=== PATIENT | female | born 1995 | race Two or more races ===

== ENCOUNTER 2024-01-13 21:08 | Emergency (ER) | payer MEDICAID, SELFPAY ==
[2024-01-13 21:09] VITALS: BMI 26.8
[2024-01-13 22:04] VITALS: BP 146/89; PULSE 85; RESP 18; TEMP 36.9; O2SAT 98
--- NOTE | 2024-01-13 22:11 | XR_ITS ---
Examination: OB Transvaginal ultrasound of the pelvis, complete Technique: Transvaginal sonographic images pelvis performed using saha scale imaging Exam date and time: January 13, 2024 10:20 PM Indications: Painful urination and vaginal bleeding pelvic pain beginning today Findings: Uterus 5.9 x 5.7 x 5.7 cm pole 0.8 cm corresponds to 6 week 6 day gestational age Cardiac motion 129 BPM Subchorionic hemorrhage 6 x 3 x 4 mm Right ovary 3.2 x 2.1 cm arterial flow Left ovary 2.2 x 2.3 cm arterial flow Impression: Viable intrauterine gestation 6 weeks 6 days Small adjacent subchorionic hemorrhage 6 x 3 x 4 mm.
--- NOTE | 2024-01-13 22:12 | EDRME_ITS ---
Rapid Medical Screening Exam [facility] Arrival date/time: 01/13/24 21:08 28F at approximately 6 weeks and with history of seizures presents to ED with several day of dysuria, flank pain, pelvic pain, and vaginal bleeding. Chief Complaint: Urogenital-Female Vital signs: Vital Signs Temperature 98.5 F 01/13/24 22:04 Pulse Rate 85 01/13/24 22:04 Respiratory Rate 18 01/13/24 22:04 Blood Pressure 146/89 H 01/13/24 22:04 Pulse Oximetry (%) 98 01/13/24 22:04 Oxygen Delivery Method Room Air 01/13/24 22:04
[2024-01-13 23:21] LABS: Basophils # (Auto) 0.1 Thou/mm3 (0.0-0.2); Basophils % (Auto) 0 % (0-2.5); Eosinophils # (Auto) 0.2 Thou/mm3 (0.0-0.5); Eosinophils % (Auto) 1 % (0-10); Hematocrit 38.4 % (36.0-46.0); Hemoglobin 13.2 g/dL (12.0-16.0); Immature Granulocytes % (Auto) 0 % (0-0); Immature Granulocytes Auto 0.05 Thou/mm3 (0.00-0.00); Lymphocytes # (Auto) 2.3 Thou/mm3 (1.0-4.8); Lymphocytes % (Auto) 15 % (10-50); Mean Corpuscular HGB Conc 34.4 g/dl (31.0-37.0); Mean Corpuscular Hemoglobin 30.6 pg (25.0-35.0); Mean Corpuscular Volume 89 fL (80-100); Monocytes % (Auto) 6 % (0-12); Neutrophils # (Auto) 12.1 Thou/mm3 (1.8-7.7); Neutrophils % (Auto) 77 % (37-80); Nucleated Red Blood Cell % 0 /100 WBC (0); Platelet Count 323 Thou/mm3 (140-440); RDW Standard Deviation 38.5 fL (36.4-46.3); Red Blood Count 4.32 Miln/mm3 (4.00-5.20); White Blood Count 15.7 Thou/mm3 (3.6-11.0)
[2024-01-13 23:22] LABS: Collection Type, Urine Clean Catch
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
[2024-01-13 23:41] LABS: Bilirubin,Urine Negative (Negative); Blood,Urine 3+ (Negative); Clarity,Urine Turbid (Clear/Hazy); Color,Urine Yellow (Lt Yel-Yel); Glucose, Urine Negative (Negative); Ketones,Urine Negative (Negative); Leukocyte Esterase,Urine Positive (Negative); Nitrite,Urine Negative (Negative); PH,Urine 6.5 (5.0-7.0); Protein,Urine 2+ (Neg - Trace); RBC,Urine 1158 /hpf (0-3); Specific Gravity,Urine 1.026 (1.001-1.035); Squamous Epithelial Cell,Urine 6 /hpf (0-5); Urobilinogen,Urine Negative mg/dL (0.0-1.0); WBC,Urine 159 /hpf (0-5)
[2024-01-13 23:46] LABS: Alanine Aminotransferase 17 U/L (10-49); Albumin, Serum 4.5 gm/dL (3.5-5.0); Albumin/Globulin Ratio 1.7 (1.2-2.2); Alkaline Phosphatase 91 U/L (46-116); Anion Gap 7 (7-16); Aspartate Amino Transferase 15 U/L (0-34); BUN/Creatinine Ratio 14 Ratio (12-20); Bilirubin,Total 0.6 mg/dL (0.3-1.2); Blood Urea Nitrogen 10 mg/dL (9-23); Calcium 9.5 mg/dL (8.3-10.6); Calcium (Corrected) 9.5 mg/dL (8.5-10.1); Carbon Dioxide 25.5 mMol/L (20.0-31.0); Chloride 105 mMol/L (98-107); Creatinine (Component) 0.7 mg/dL (0.6-1.3); Estimated Creatinine Clearance 104.7 mL/min (>60); Globulin 2.7 gm/dL (2.3-3.5); Glucose 93 mg/dL (74-106); Osmolality,Calculated 272 (275-295); Potassium 3.9 mMol/L (3.4-5.1); Sodium 137 mMol/L (136-145); Total Protein 7.2 gm/dL (5.7-8.2); eGFR > 60 See Note
[2024-01-14 00:17] LABS: Beta HCG,Quantitative 72369 mIU/mL (<5.0)
[2024-01-14] MEDS: cefTRIAXone 1,000 MG, LIDOCAINE 1% 20 ML 2.1 ML IM (01:06)
== END 2024-01-14 01:15 | disposition home or self-care (01) ==
PROVIDERS: Physician Assistant; Emergency Provider Emergency Medicine; PCP Physician Assistant Medical
DX: O23.41 Unspecified infection of urinary tract in pregnancy, first trimester (principal); N39.0 Urinary tract infection, site not specified; O20.0 Threatened abortion; Z3A.01 Less than 8 weeks gestation of pregnancy
CPT/HCPCS: 36415; 76817; 80053; 81001; 84702; 85025; 86900; 86901; 87086; 96372; 99284; J0696; J3490

== ENCOUNTER 2024-01-18 18:45 | Emergency (ER) | payer MEDICAID, SELFPAY ==
[2024-01-18 18:46] VITALS: BP 126/78; PULSE 79; RESP 19; TEMP 37.1; O2SAT 97
[2024-01-18 18:48] VITALS: PULSE 98; RESP 16; O2SAT 99; BMI 24.7
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
--- NOTE | 2024-01-18 19:21 | EDNOTE_ITS ---
<Statement entered by Maura Dyson MD - 01/26/24 17:45> As co-signing physician, I was present and available for consult prn. I concur with the plan and care as documented by the midlevel provider. ED Seizures RME/HPI General Chief Complaint: Seizure Stated Complaint: SEIZURE Time Seen by Provider: 01/18/24 19:20 Arrival date/time: 01/18/24 18:45 This is a 28-year-old female that comes into the emergency room with complaints of seizures prior to arrival. Patient has a history of epilepsy. Patient is approximately 7 weeks . Patient was in line at [facility] [employer] to pay and had 2 seizures [id number]. Patient was assisted to the floor and did not fall according to mom. Patient denies any injuries. Patient states over the past couple weeks has had nausea vomiting. Patient was recently diagnosed with a UTI and is on antibiotics. Related Data Previous Rx's ?Medication ?Instructions ?Recorded levetiracetam 500 mg tablet 500 mg PO BID #60 tabs 11/26/22 (Keppra) azithromycin 500 mg tablet See Rx Instructions PO .COMPLEX #6 02/09/23 tabs ibuprofen 600 mg tablet 600 mg PO Q6H #30 tabs 02/09/23 ondansetron 4 mg disintegrating 4 mg PO Q8H PRN nausea and 02/09/23 tablet vomiting #10 tabs ibuprofen 600 mg tablet 600 mg PO Q6H #30 tabs 11/26/23 phenazopyridine 100 mg tablet 100 mg PO TID PRN pain 6 doses #6 01/14/24 (Pyridium) tabs ondansetron 4 mg disintegrating 4 mg PO Q6H PRN nausea and 01/18/24 tablet vomiting #10 tabs Allergies Allergy/AdvReac Type Severity Reaction Status Date / Time No Known Allergies Allergy Verified 11/26/23 08:19 Review of Systems Review of Systems Systems Reviewed: All systems reviewed, normal except as documented Past Medical History Past Medical History NEUROLOGIC: Negative Neurological Disorders CARDIAC: Negative Cardiac Disorders or Congestive Heart Failure RESPIRATORY: Negative Chronic Obstructive Pulmonary Disease (COPD) GENITOURINARY: Negative Renal Disease ENDOCRINE: Negative Diabetes Mellitus Type 1 or Diabetes Mellitus Type 2 Social History SMOKING STATUS: Never smoker ED Exam General General appearance: Present alert and in no apparent distress Head Head exam: Present atraumatic Eye Eye exam: Present normal appearance, PERRL and EOMI ENT ENT exam: Present normal exam, normal oropharynx and mucous membranes moist Neck Neck exam: Present normal inspection, full ROM and trachea midline Chest Chest inspection: Present normal inspection and symmetric chest wall rise Respiratory Respiratory exam: Present normal lung sounds bilaterally Cardiovascular Cardiovascular exam: Present regular rate, normal rhythm and normal heart sounds Abdominal Exam Abdominal exam: Present soft and other (nontender to palpation ) Extremities Exam Extremities exam: Present normal inspection and full ROM Back Exam Back exam: Present normal inspection and full ROM Neurological Exam Neurological exam: Present alert, oriented X3 and CN II-XII intact Psychiatric Psychiatric exam: Present normal affect and normal mood Skin Skin exam: Present warm, dry, intact and normal color Course Quality Measures none Orders Category Date Time Status IV [Insert IV] STAT Care 01/18/24 19:35 Completed CBC Stat Lab 01/18/24 19:41 Completed Comprehensive Metabolic Panel Stat Lab 01/18/24 19:41 Completed Drug Screen,Urine Stat Lab 01/18/24 19:52 Completed Lipase Stat Lab 01/18/24 19:41 Completed Urinalysis, C/S if Indicated Stat Lab 01/18/24 19:52 Completed Ondansetron Inj [Zofran Inj] Med 01/18/24 19:37 Discontinued 4 mg IV X1 ONE Sodium Chloride 0.9% 1000 ml [Ns] 1,000 ml Med 01/18/24 19:35 Discontinued IV 999 mls/hr levETIRAcetam INJ [Keppra Inj] Med 01/18/24 19:31 Discontinued 1,000 mg IVP X1 ONE Vital Signs Vital signs: Vital Signs Temperature 98.7 F 01/18/24 18:46 Pulse Rate 79 01/18/24 18:46 Respiratory Rate 19 01/18/24 18:46 Blood Pressure 126/78 01/18/24 18:46 Pulse Oximetry (%) 97 01/18/24 18:46 Oxygen Delivery Method Room Air 01/18/24 18:46 Seizure MDM Narrative MDM Narrative:: This is a 28-year-old female that comes into the emergency room with complaints of seizures prior to arrival. Patient has a history of epilepsy. Patient is approximately 7 weeks . Patient was in line at [facility] waiting to pay and had 2 seizures [id number]. Patient was assisted to the floor and did not fall according to mom. Patient denies any injuries. Patient states over the past couple weeks has had nausea vomiting. Patient was recently diagnosed with a UTI and is on antibiotics. Labs reviewed and significant for wbc of 12.8, urine showed infection but better than previous. Pt still on antibiotics. Pt given 1 liter iv fluids, keprra, and zofran. Pt told she will need to follow up with neurologist. Pt verbalizes understanding. She also verbalizes she will take sz meds. Patient data External records reviewed:: [facility] [place] previous records Clinical information provided by:: patient Social determinants that could affect healthcare access:: none Patient has the following chronic illnesses:: sz disorder How is presenting disease/condition affected by chronic disease/condition?: exacerbated by Evaluation data The following diagnostics were reviewed and interpreted by me:: lab results Lab and/or radiology exams considered but not ordered:: none Interpretation Summary: see note Medications / Prescriptions Medications or Prescriptions considered but not ordered:: none Medication administrations:: Medication Administration History Discontinued Medications Sodium Chloride (Ns) 1,000 mls @ 999 mls/hr IV .Q1H1M ONE Stop: 01/18/24 20:35 Last Infusion: 01/18/24 21:33 Dose: Infused Documented By: Admin: 01/18/24 19:44 Dose: 999 mls/hr Documented By: STEPHANIE Levetiracetam (Levetiracetam Inj 100 Mg/Ml Vial 5ml) 1,000 mg IVP X1 ONE Stop: 01/18/24 19:32 Last Admin: 01/18/24 19:44 Dose: 1,000 mg Documented By: STEPHANIE Ondansetron HCl (Ondansetron Inj 2 Mg/Ml Inj 2 Ml) 4 mg IV X1 ONE; Protocol Stop: 01/18/24 19:38 Last Admin: 01/18/24 19:44 Dose: 4 mg Documented By: STEPHANIE see mar Consultations Consultation(s) initiated? (list below): No Diagnosis Seizure Differential Diagnosis: intractable seizure disorder, epileptic seizure and other (uti, sepsis) Most likely diagnosis given after review of the tests above:: not taking medication for epilepsy Admission Indicated Admission indicated?: not indicated Admission Request Was there a request for admission?: No Disposition Plan Disposition Plan: Discharge Discharge Attestation Discharge Attestation: The patient and all family members were given an opportunity to ask questions and understood the discharge instructions. Discharge instructions specifically effects, indications for sooner follow up or return to the emergency department, and the expected course of current diagnosis. Patient condition: Stable Discharge Plan Plan Patient Disposition: HOME (Self Care) Patient condition on transfer: Stable Prescriptions/Referrals Prescriptions/Med Rec: New ondansetron 4 mg tablet,disintegrating 4 mg PO Q6H PRN (Reason: nausea and vomiting) Qty: 10 0RF No Action ibuprofen 600 mg tablet 600 mg PO Q6H Qty: 30 0RF levetiracetam [Keppra] 500 mg tablet 500 mg PO BID Qty: 60 0RF ibuprofen 600 mg tablet 600 mg PO Q6H Qty: 30 0RF ondansetron 4 mg tablet,disintegrating 4 mg PO Q8H PRN (Reason: nausea and vomiting) Qty: 10 0RF azithromycin 500 mg tablet See Rx Instructions .ROUTE .COMPLEX Qty: 6 0RF Rx Instructions: take 500 mg today (day 1), then 250 mg for 4 days (days 2-5) phenazopyridine [Pyridium] 100 mg tablet 100 mg PO TID PRN (Reason: pain) Qty: 6 0RF Referrals: No Primary/Family,Physician [Referring Provider] - In 1 week Problem List Clinical Impression: Seizure disorder, UTI (urinary tract infection) Patient/Caregiver Discharge Instructions Discharge Activity: activity as tolerated Education Materials: Urinary Tract Infections in Women, ED Seizure, Recurrent (Adult) Additional Instructions: Continue to take antibiotics as prescribed. Please take seizure medications as directed. Please make an appointment with primary provider and have them refer you to a neurologist in town. Print Language: Romansh Stand Alone Forms: Gill Award Info., Patient Portal Info Letter MARVA/BRO Supervising Physician MARVA/BRO Supervising Physician: prasad
[2024-01-18] MEDS: ONDANSETRON INJ 2 MG/ML INJ 2 ML 4 MG IV (19:44)
[2024-01-18] MEDS: levETIRAcetam INJ 100 MG/ML VIAL 5ML 1000 MG IVP (19:44)
[2024-01-18] MEDS: SODIUM CHLORIDE 0.9% 1000 ML 1,000 ML 999 ML IV (19:44)
[2024-01-18 19:49] VITALS: BP 119/77; PULSE 81; RESP 20; TEMP 37.2; O2SAT 99
[2024-01-18 19:54] LABS: Basophils % (Auto) 0 % (0-2.5); Eosinophils # (Auto) 0.1 Thou/mm3 (0.0-0.5); Eosinophils % (Auto) 0 % (0-10); Hematocrit 38.4 % (36.0-46.0); Hemoglobin 13.5 g/dL (12.0-16.0); Immature Granulocytes % (Auto) 0 % (0-0); Immature Granulocytes Auto 0.03 Thou/mm3 (0.00-0.00); Lymphocytes # (Auto) 1.5 Thou/mm3 (1.0-4.8); Lymphocytes % (Auto) 12 % (10-50); Mean Corpuscular HGB Conc 35.2 g/dl (31.0-37.0); Mean Corpuscular Hemoglobin 30.6 pg (25.0-35.0); Mean Corpuscular Volume 87 fL (80-100); Monocytes # (Auto) 0.7 Thou/mm3 (0.0-0.8); Monocytes % (Auto) 5 % (0-12); Neutrophils # (Auto) 10.5 Thou/mm3 (1.8-7.7); Neutrophils % (Auto) 82 % (37-80); Nucleated Red Blood Cell % 0 /100 WBC (0); Platelet Count 319 Thou/mm3 (140-440); RDW Standard Deviation 37.9 fL (36.4-46.3); Red Blood Count 4.41 Miln/mm3 (4.00-5.20); White Blood Count 12.8 Thou/mm3 (3.6-11.0)
[2024-01-18 20:01] LABS: Collection Type, Urine Voided
[2024-01-18 20:09] LABS: Bacteria,Urine Rare; Bilirubin,Urine Negative (Negative); Blood,Urine Negative (Negative); Clarity,Urine Turbid (Clear/Hazy); Color,Urine Yellow (Lt Yel-Yel); Culture Indicated,Urine Contaminated; Glucose, Urine Negative (Negative); Ketones,Urine 2+ (Negative); Leukocyte Esterase,Urine Positive (Negative); Nitrite,Urine Negative (Negative); PH,Urine 6.5 (5.0-7.0); Protein,Urine 1+ (Neg - Trace); RBC,Urine 6 /hpf (0-3); Specific Gravity,Urine 1.029 (1.001-1.035); Squamous Epithelial Cell,Urine 23 /hpf (0-5); Urobilinogen,Urine Negative mg/dL (0.0-1.0); WBC,Urine 20 /hpf (0-5)
[2024-01-18 20:13] LABS: Alanine Aminotransferase 19 U/L (10-49); Albumin, Serum 4.6 gm/dL (3.5-5.0); Albumin/Globulin Ratio 1.5 (1.2-2.2); Alkaline Phosphatase 92 U/L (46-116); Anion Gap 9 (7-16); Aspartate Amino Transferase 16 U/L (0-34); BUN/Creatinine Ratio 10 Ratio (12-20); Blood Urea Nitrogen 6 mg/dL (9-23); Calcium 9.9 mg/dL (8.3-10.6); Calcium (Corrected) 9.9 mg/dL (8.5-10.1); Carbon Dioxide 24.5 mMol/L (20.0-31.0); Chloride 104 mMol/L (98-107); Creatinine (Component) 0.6 mg/dL (0.6-1.3); Estimated Creatinine Clearance 127.5 mL/min (>60); Glucose 91 mg/dL (74-106); Lipase 33 U/L (12-53); Osmolality,Calculated 271 (275-295); Sodium 137 mMol/L (136-145); Total Protein 7.6 gm/dL (5.7-8.2); eGFR > 60 See Note
[2024-01-18 20:19] LABS: Amphetamine/Methamp Scrn,U Negative (Negative); Barbiturate Screen,Urine Negative (Negative); Benzodiazepines Screen,Urine Negative (Negative); Benzoylecgonine Screen, Ur Negative (Negative); Fentanyl Screen,Urine Negative (Negative); Opiate Screen,Urine Negative (Negative); THC Screen,Urine Negative (Negative)
[2024-01-18 21:17] VITALS: BP 116/80; PULSE 76; RESP 16; TEMP 36.9; O2SAT 100
== END 2024-01-18 21:46 | disposition home or self-care (01) ==
PROVIDERS: Nurse Practitioner Family; Emergency Provider Emergency Medicine; PCP Physician Assistant Medical
DX: O99.351 Diseases of the nervous system complicating pregnancy, first trimester (principal); G40.909 Epilepsy, unspecified, not intractable, without status epilepticus; O23.41 Unspecified infection of urinary tract in pregnancy, first trimester; N39.0 Urinary tract infection, site not specified; Z3A.01 Less than 8 weeks gestation of pregnancy
CPT/HCPCS: 36415; 80053; 80307; 81001; 83690; 85025; 96361; 96374; 96375; 99284; J1953; J2405; J7030

== ENCOUNTER 2024-02-22 11:00 | Emergency (ER) | payer MEDICAID, SELFPAY ==
[2024-02-22 11:26] VITALS: BP 106/68; PULSE 115; RESP 18; TEMP 39; O2SAT 97; BMI 25.3
[2024-02-22 11:53] VITALS: TEMP 39
[2024-02-22] MEDS: ACETAMINOPHEN 500 MG TABLET 1000 MG PO (11:53)
[2024-02-22] MEDS: ONDANSETRON ODT 4 MG TABRAP PO (11:54)
[2024-02-22] MEDS: KETOROLAC INJ 60 MG/2 ML VIAL IM (11:55)
[2024-02-22 13:27] VITALS: BP 100/69; PULSE 96; RESP 18; TEMP 36.7; O2SAT 94
--- NOTE | 2024-02-22 14:36 | EDNOTE_ITS ---
Upper Respiratory Inf. RME/HPI General Chief Complaint: Flu Like Symptoms Stated Complaint: flu like symptoms x 1 day Time Seen by Provider: 02/22/24 11:36 Arrival date/time: 02/22/24 11:00 RME / HPI RME / HPI Narrative: 28-year-old female presents emergency department with complaint of flulike symptoms for the past 1 day. Patient was seen here yesterday with daughter who was also positive for strep and influenza. Patient also complains of fatigue and bodyaches. She denies any elevating aggravating factors. MD Complaint: fever, cough and sore throat Duration: constant Severity: severe Severity scale (1-10): 8 Relieving factors: nothing Exacerbating factors: nothing Description of mucous: clear Able to tolerate fluids by mouth: Yes Related Data Previous Rx's ?Medication ?Instructions ?Recorded levetiracetam 500 mg tablet 500 mg PO BID #60 tabs 11/26/22 (Keppra) azithromycin 500 mg tablet See Rx Instructions PO .COMPLEX #6 02/09/23 tabs ibuprofen 600 mg tablet 600 mg PO Q6H #30 tabs 02/09/23 ondansetron 4 mg disintegrating 4 mg PO Q8H PRN nausea and 02/09/23 tablet vomiting #10 tabs ibuprofen 600 mg tablet 600 mg PO Q6H #30 tabs 11/26/23 phenazopyridine 100 mg tablet 100 mg PO TID PRN pain 6 doses #6 01/14/24 (Pyridium) tabs ondansetron 4 mg disintegrating 4 mg PO Q6H PRN nausea and 01/18/24 tablet vomiting #10 tabs azithromycin 250 mg tablet See Rx Instructions PO .COMPLEX #6 02/22/24 tabs ibuprofen 600 mg tablet 600 mg PO QID PRN pain #20 tabs 02/22/24 ondansetron 4 mg disintegrating 4 mg PO Q8H #10 tabs 02/22/24 tablet oseltamivir 75 mg capsule (Tamiflu) 75 mg PO BID 5 days #10 caps 02/22/24 Allergies Allergy/AdvReac Type Severity Reaction Status Date / Time No Known Allergies Allergy Verified 11/26/23 08:19 Review of Systems Review of Systems Systems Reviewed: All systems reviewed, normal except as documented Constitutional Constitutional: Reports system reviewed and no additional complaints, except as documented ENT Ears, Nose, Mouth, and Throat: Reports system reviewed and no additional complaints, except as documented Respiratory Respiratory: Reports system reviewed and no additional complaints, except as documented Musculoskeletal Musculoskeletal: Reports system reviewed and no additional complaints, except as documented ED Exam General General appearance: Present alert and in no apparent distress; Absent appears intoxicated or anxious Head Head exam: Present atraumatic and normocephalic Eye Eye exam: Present normal appearance and PERRL ENT ENT exam: Present normal exam and normal oropharynx Chest Chest inspection: Present normal inspection and symmetric chest wall rise Respiratory Respiratory exam: Present normal lung sounds bilaterally Cardiovascular Cardiovascular exam: Present regular rate and normal rhythm Extremities Exam Extremities exam: Present normal inspection and full ROM Back Exam Back exam: Present normal inspection and full ROM Psychiatric Psychiatric exam: Present normal affect and normal mood Course Quality Measures none Orders Category Date Time Status Acetaminophen Tab [Tylenol ES Tab] Med 02/22/24 11:37 Discontinued 1,000 mg PO X1 ONE Ketorolac Inj [Toradol Inj] Med 02/22/24 11:37 Discontinued 60 mg IM X1 ONE Ondansetron Odt [Zofran Odt] Med 02/22/24 11:37 Discontinued 4 mg PO X1 ONE Vital Signs Vital signs: Vital Signs Temperature 102.2 F H 02/22/24 11:26 Pulse Rate 115 H 02/22/24 11:26 Respiratory Rate 18 02/22/24 11:26 Blood Pressure 106/68 02/22/24 11:26 Pulse Oximetry (%) 97 02/22/24 11:26 Oxygen Delivery Method Room Air 02/22/24 11:26 Upper Respiratory Infection MDM Narrative MDM Narrative:: Patient's daughter tested positive for influenza and strep. Will treat patient empirically for strep and influenza. Patient is in agreement with plan. Patient data External records reviewed:: None Clinical information provided by:: patient Social determinants that could affect healthcare access:: none Patient has the following chronic illnesses:: NA How is presenting disease/condition affected by chronic disease/condition?: no chronic disease Evaluation data The following diagnostics were reviewed and interpreted by me:: other (specify) (N/A) Lab and/or radiology exams considered but not ordered:: NA Interpretation Summary: NA Medications / Prescriptions Medications or Prescriptions considered but not ordered:: CONSIDERED AND ORDERED Medication administrations:: Medication Administration History Discontinued Medications Acetaminophen (Acetaminophen 500 Mg Tablet) 1,000 mg PO X1 ONE Stop: 02/22/24 11:38 Last Admin: 02/22/24 11:53 Dose: 1,000 mg Documented By: ED Ketorolac Tromethamine (Ketorolac Inj 60 Mg/2 Ml Vial) 60 mg IM X1 ONE Stop: 02/22/24 11:38 Last Admin: 02/22/24 11:55 Dose: 60 mg Documented By: ED Ondansetron HCl (Ondansetron Odt 4 Mg Tabrap) 4 mg PO X1 ONE; Protocol Stop: 02/22/24 11:38 Last Admin: 02/22/24 11:54 Dose: 4 mg Documented By: ED PER ABOVE Consultations Consultation(s) initiated? (list below): No Diagnosis Upper Respiratory Differential Diagnosis: upper respiratory infection, viral infection, bronchitis and influenza Most likely diagnosis given after review of the tests above:: INFLUENZA/ STREP PHARYNGITIS Admission Indicated Admission indicated?: not indicated Admission Request Was there a request for admission?: No Disposition Plan Disposition Plan: Discharge Discharge Attestation Discharge Attestation: The patient and all family members were given an opportunity to ask questions and understood the discharge instructions. Discharge instructions specifically effects, indications for sooner follow up or return to the emergency department, and the expected course of current diagnosis. Patient condition: Stable Discharge Plan Plan Patient Disposition: HOME (Self Care) Prescriptions/Referrals Prescriptions/Med Rec: New azithromycin 250 mg tablet See Rx Instructions .ROUTE .COMPLEX Qty: 6 0RF Rx Instructions: For 250 mg dose pack: take 500 mg today (day 1), then 250 mg for 4 days (days 2-5) oseltamivir [Tamiflu] 75 mg capsule 75 mg PO BID 5 Days Qty: 10 0RF ibuprofen 600 mg tablet 600 mg PO QID PRN (Reason: pain) Qty: 20 0RF ondansetron 4 mg tablet,disintegrating 4 mg PO Q8H Qty: 10 0RF No Action ibuprofen 600 mg tablet 600 mg PO Q6H Qty: 30 0RF ondansetron 4 mg tablet,disintegrating 4 mg PO Q6H PRN (Reason: nausea and vomiting) Qty: 10 0RF levetiracetam [Keppra] 500 mg tablet 500 mg PO BID Qty: 60 0RF ibuprofen 600 mg tablet 600 mg PO Q6H Qty: 30 0RF ondansetron 4 mg tablet,disintegrating 4 mg PO Q8H PRN (Reason: nausea and vomiting) Qty: 10 0RF azithromycin 500 mg tablet See Rx Instructions .ROUTE .COMPLEX Qty: 6 0RF Rx Instructions: take 500 mg today (day 1), then 250 mg for 4 days (days 2-5) phenazopyridine [Pyridium] 100 mg tablet 100 mg PO TID PRN (Reason: pain) Qty: 6 0RF Referrals: Sp Mcneal PA-C [Primary Care Provider] - In 1 week Problem List Clinical Impression: Exposure to influenza, Pharyngitis Patient/Caregiver Discharge Instructions Print Language: Amharic Stand Alone Forms: Gill Award Info., Patient Portal Info Letter
== END 2024-02-22 15:30 | disposition home or self-care (01) ==
PROVIDERS: Emergency Provider Emergency Medicine; PCP Physician Assistant Medical
DX: J02.9 Acute pharyngitis, unspecified (principal); Z20.828 Contact with and (suspected) exposure to other viral communicable diseases
CPT/HCPCS: 96372; 99283; J1885; Q0162; A9270

== ENCOUNTER 2024-10-26 12:11 | Emergency (ER) | payer MEDICAID, SELFPAY ==
--- NOTE | 2024-10-26 12:24 | XR_ITS ---
Examination: CT abdomen and pelvis without contrast. Coronal 3-D reconstructions. Sagittal 2-D reconstructions. Date and time of exam:October 26, 2024 1400 hours INDICATIONS: Left-sided flank pain and nausea beginning 2 days ago CTDI: vol (mGy): 7.11 DLP: (mGycm): 374 Technique: Axial images of the abdomen have been obtained, 3 mm slice thickness Intravenous contrast material has not been administered. Low dose protocols were performed. One or more of the following dose reduction techniques were used; automated exposure control, adjustment of the mA and/or KV according to patient size, use of iterative reconstruction technique. Findings: No focal liver or splenic lesions No gallstones No pancreatic or adrenal mass No renal or ureteral calculi, no hydronephrosis Aorta normal size No bowel obstruction Normal appendix No diverticulitis Suspicious for 20 mm right adnexal cyst Contracted urinary bladder Adequate bone density IMPRESSION: No renal or ureteral calculi, no hydronephrosis No bladder mass or bladder calculi Normal appendix Consider pelvic sonography to confirm 20 mm right adnexal cyst
--- NOTE | 2024-10-26 12:25 | EDNOTE_ITS ---
ED Back Injury Pain RME/HPI General Chief Complaint: Back Pain/Injury Stated Complaint: L) FLANK PAIN X 2 DAYS Time Seen by Provider: 10/26/24 12:19 Source: patient Arrival date/time: 10/26/24 12:11 29-year-old female with no known medical history presents to the emergency room with a chief complaint of left upper quadrant abdominal pain and left-sided flank pain x 2 days Mode of arrival: ambulatory Limitations: no limitations Related Data Previous Rx's ?Medication ?Instructions ?Recorded levetiracetam 500 mg tablet 500 mg PO BID #60 tabs 12/09 (Keppra) azithromycin 500 mg tablet See Rx Instructions PO .COM PLEX #6 02/09/23 tabs ibuprofen 600 mg tablet 600 mg PO Q6H #30 tabs 02/09 ondansetron 4 mg disintegrating 4 mg PO Q8H PRN nausea and 02/09/23 tablet vomiting #10 tabs ibuprofen 600 mg tablet 600 mg PO Q6H #30 tabs 11/25 phenazopyridine 100 mg tablet 100 mg PO TID PRN pain 6 doses #6 01/14/24 (Pyridium) tabs ondansetron 4 mg disintegrating 4 mg PO Q6H PRN nausea and 01/18/24 tablet vomiting #10 tabs azithromycin 250 mg tablet See Rx Instructions PO .COM PLEX #6 02/22/24 tabs ibuprofen 600 mg tablet 600 mg PO QID PRN pain #20 t abs 02/22/24 ondansetron 4 mg disintegrating 4 mg PO Q8H #10 tabs 0 02/22/24 tablet nitrofurantoin 100 mg PO Q12H 5 days #10 ca ps 10/26/24 monohydrate/macrocrystals 100 mg capsule (Macrobid) Allergies Allergy/AdvReac Type Severity Reaction Status Date / Time No Known Allergies Allergy Verified 10/26/24 12:13 Review of Systems Review of Systems Systems Reviewed: All systems reviewed, normal except as documented Constitutional Constitutional: Reports system reviewed and no additional complaints, except as documented, Denies fatigue, Denies fever(s), Denies headache(s) and Denies weakness Eyes Eyes: Reports system reviewed and no additional complaints, except as documented, Denies blurry vision and Denies change in vision ENT Ears, Nose, Mouth, and Throat: Reports system reviewed and no additional complaints, except as documented, Denies otalgia, Denies headache(s), Denies nasal congestion, Denies throat swelling and Denies vertigo Cardiovascular Cardiovascular: Reports system reviewed and no additional complaints, except as documented, Denies chest pain, Denies dyspnea and Denies dyspnea on exertion Respiratory Respiratory: Reports system reviewed and no additional complaints, except as documented, Denies chest congestion, Denies cough, Denies dyspnea, Denies dyspnea on exertion and Denies wheezing Gastrointestinal Gastrointestinal: Reports system reviewed and no additional complaints, except as documented, Reports abdominal pain, Reports cramping, Denies nausea and Denies vomiting Genitourinary Genitourinary: Reports system reviewed and no additional complaints, except as documented Musculoskeletal Musculoskeletal: Reports system reviewed and no additional complaints, except as documented and Denies back pain Integumentary/Breasts Skin/Breast: Reports system reviewed and no additional complaints, except as documented and Denies wounds Neurologic Neurologic: Reports system reviewed and no additional complaints, except as documented, Denies confusion, Denies headache(s), Denies lack of coordination, Denies vertigo and Denies weakness Psychiatric Psychiatric: Reports system reviewed and no additional complaints, except as documented, Denies anxiety, Denies confusion, Denies depression, Denies paranoia, Denies suicidal ideation and Denies tactile hallucinations Endocrine Endocrine: Reports system reviewed and no additional complaints, except as documented and Denies fatigue Hematologic/Lymphatic Hematologic/Lymphatic: Reports system reviewed and no additional complaints, except as documented and Denies lymphadenopathy Allergic/Immunologic Allergic/Immunologic: Reports system reviewed and no additional complaints, except as documented, Denies throat swelling, Denies urticaria and Denies wheezing Past Medical History Past Medical History NEUROLOGIC: Negative Neurological Disorders CARDIAC: Negative Cardiac Disorders or Congestive Heart Failure RESPIRATORY: Negative Chronic Obstructive Pulmonary Disease (COPD) GENITOURINARY: Negative Renal Disease REPRODUCTIVE: Positive Previous Pregnancies ENDOCRINE: Negative Diabetes Mellitus Type 1 or Diabetes Mellitus Type 2 Social History SMOKING STATUS: Never smoker ED Exam General Limitations: Present no limitations General appearance: Present alert and in no apparent distress Head Head exam: Present atraumatic Eye Eye exam: Present normal appearance, PERRL and EOMI ENT ENT exam: Present normal exam, normal oropharynx and mucous membranes moist Neck Neck exam: Present normal inspection, full ROM and trachea midline Chest Chest inspection: Present normal inspection and symmetric chest wall rise Respiratory Respiratory exam: Present normal lung sounds bilaterally Cardiovascular Cardiovascular exam: Present regular rate, normal rhythm and normal heart sounds; Absent bradycardia, tachycardia or irregular rhythm Abdominal Exam Abdominal exam: Present soft, tenderness and normal bowel sounds; Absent Foster's sign or tenderness at [place]Bur[place]'s Point Abdominal tenderness: Present LUQ and moderate Extremities Exam Extremities exam: Present normal inspection and full ROM Back Exam Back exam: Present normal inspection and full ROM Neurological Exam Neurological exam: Present alert, oriented X3 and CN II-XII intact Psychiatric Psychiatric exam: Present normal affect and normal mood Skin Skin exam: Present warm, dry, intact and normal color Course Quality Measures none Orders Category Date Time Status CT abdomen pelvis wo con Stat Exams 10/26/24 12:24 Completed CBC Stat Lab 10/26/24 12:31 Completed CMP [Comprehensive Metabolic Panel] Stat Lab 10/26/24 12:31 Completed HCG Qualitative,Urine Stat Lab 10/26/24 12:55 Completed Lipase Stat Lab 10/26/24 12:31 Completed UA [Urinalysis] Stat Lab 10/26/24 12:55 Completed Urine Culture Stat Lab 10/26/24 12:55 Received Vital Signs Vital signs: Vital Signs Temperature 98.6 F 10/26/24 12:26 Pulse Rate 88 10/26/24 12:26 Respiratory Rate 16 10/26/24 12:26 Blood Pressure 146/87 H 10/26/24 12:26 Pulse Oximetry (%) 98 10/26/24 12:26 Oxygen Delivery Method Room Air 10/26/24 12:26 Back Pain / Injury MDM Narrative MDM Narrative:: 29-year-old female with no known medical history presents to the emergency room with a chief complaint of left upper quadrant abdominal pain and left-sided flank pain x 2 days Patient is hemodynamically stable and in no apparent distress. Patient is afebrile not tachycardic not tachypneic Physical examination shows tenderness and pain to the patient's left upper quadrant with palpation. Patient denies any right lower quadrant or right upper quadrant abdominal tenderness. A CT of the abdomen and pelvis was completed and is negative for any acute findings. Urinalysis shows a urinary tract infection. Antibiotics are sent to the patient's pharmacy CBC CMP are well within normal limits Patient was discharged and educated to follow-up with primary care provider in the next 24 to 48 hours and return to the emergency room for any evidence of worsening signs or symptoms Patient data External records reviewed:: [facility] previous records Clinical information provided by:: patient Social determinants that could affect healthcare access:: none Patient has the following chronic illnesses:: No chronic illness How is presenting disease/condition affected by chronic disease/condition?: no chronic disease Evaluation data The following diagnostics were reviewed and interpreted by me:: lab results and radiology exam(s) Lab and/or radiology exams considered but not ordered:: Labs and radiology exams considered and ordered Interpretation Summary: Abdomen and pelvis CT-Findings: No focal liver or splenic lesions No gallstones No pancreatic or adrenal mass No renal or ureteral calculi, no hydronephrosis Aorta normal size No bowel obstruction Normal appendix No diverticulitis Suspicious for 20 mm right adnexal cyst Contracted urinary bladder Adequate bone density IMPRESSION: No renal or ureteral calculi, no hydronephrosis No bladder mass or bladder calculi Normal appendix Consider pelvic sonography to confirm 20 mm right adnexal cyst Medications / Prescriptions Medications or Prescriptions considered but not ordered:: No medication Medication administrations:: No medication given Consultations Consultation(s) initiated? (list below): No Diagnosis Differential diagnosis back pain/injury: strain of lumbar region, thoracic back pain and other (Urinary tract infection) Most likely diagnosis given after review of the tests above:: Urinary tract infection Admission Indicated Admission indicated?: not indicated Admission Request Was there a request for admission?: No Disposition Plan Disposition Plan: Discharge Discharge Attestation Discharge Attestation: The patient and all family members were given an opportunity to ask questions and understood the discharge instructions. Discharge instructions specifically effects, indications for sooner follow up or return to the emergency department, and the expected course of current diagnosis. Patient condition: Stable Discharge Plan Plan Patient Disposition: HOME (Self Care) Discharge Disposition comment: Stable Prescriptions/Referrals Prescriptions/Med Rec: New nitrofurantoin monohyd/m-cryst [Macrobid] 100 mg capsule 100 mg PO Q12H 5 Days Qty: 10 0RF Rx Instructions: must administer with a meal/food No Action ibuprofen 600 mg tablet 600 mg PO Q6H Qty: 30 0RF ondansetron 4 mg tablet,disintegrating 4 mg PO Q6H PRN (Reason: nausea and vomiting) Qty: 10 0RF azithromycin 250 mg tablet See Rx Instructions .ROUTE .COMPLEX Qty: 6 0RF Rx Instructions: For 250 mg dose pack: take 500 mg today (day 1), then 250 mg for 4 days (days 2-5) ibuprofen 600 mg tablet 600 mg PO QID PRN (Reason: pain) Qty: 20 0RF ondansetron 4 mg tablet,disintegrating 4 mg PO Q8H Qty: 10 0RF levetiracetam [Keppra] 500 mg tablet 500 mg PO BID Qty: 60 0RF ibuprofen 600 mg tablet 600 mg PO Q6H Qty: 30 0RF ondansetron 4 mg tablet,disintegrating 4 mg PO Q8H PRN (Reason: nausea and vomiting) Qty: 10 0RF azithromycin 500 mg tablet See Rx Instructions .ROUTE .COMPLEX Qty: 6 0RF Rx Instructions: take 500 mg today (day 1), then 250 mg for 4 days (days 2-5) phenazopyridine [Pyridium] 100 mg tablet 100 mg PO TID PRN (Reason: pain) Qty: 6 0RF Referrals: Sp Mcneal PA-C [Primary Care Provider] - In 1 week Problem List Clinical Impression: Urinary tract infection Patient/Caregiver Discharge Instructions Education Materials: ED CYSTITIS Female Adult Additional Instructions: Please follow-up with your primary care provider in the next 24 to 48 hours Antibiotics are sent to your pharmacy please pick them up and take them as indicated For any evidence of worsening signs or symptoms return to emergency room immediately Print Language: [place] Island[place] Stand Alone Forms: Gill Award Info., Patient Portal Info Letter PA/BRO Supervising Physician MARVA/BRO Supervising Physician: Dr. Paiz
[2024-10-26 12:26] VITALS: BP 146/87; PULSE 88; RESP 16; TEMP 37; O2SAT 98
[2024-10-26 12:53] LABS: Basophils # (Auto) 0.0 Thou/mm3 (0.0-0.2); Basophils % (Auto) 0 % (0-2.5); Eosinophils # (Auto) 0.1 Thou/mm3 (0.0-0.5); Eosinophils % (Auto) 2 % (0-10); Hematocrit 40.0 % (36.0-46.0); Hemoglobin 13.5 g/dL (12.0-16.0); Immature Granulocytes Auto 0.01 Thou/mm3 (0.00-0.00); Lymphocytes # (Auto) 2.4 Thou/mm3 (1.0-4.8); Lymphocytes % (Auto) 36 % (10-50); Mean Corpuscular HGB Conc 33.8 g/dl (31.0-37.0); Mean Corpuscular Hemoglobin 30.5 pg (25.0-35.0); Mean Corpuscular Volume 90 fL (80-100); Monocytes # (Auto) 0.6 Thou/mm3 (0.0-0.8); Monocytes % (Auto) 9 % (0-12); Neutrophils # (Auto) 3.5 Thou/mm3 (1.8-7.7); Neutrophils % (Auto) 52 % (37-80); Nucleated Red Blood Cell # 0.00 Thou/mm3 (0.00-0.00); Nucleated Red Blood Cell % 0 /100 WBC (0); Platelet Count 285 Thou/mm3 (140-440); RDW Standard Deviation 39.4 fL (36.4-46.3); Red Blood Count 4.43 Miln/mm3 (4.00-5.20); White Blood Count 6.8 Thou/mm3 (3.6-11.0)
[2024-10-26 13:04] LABS: Collection Type, Urine Clean Catch
[2024-10-26 13:11] LABS: Alanine Aminotransferase 23 U/L (10-49); Albumin, Serum 4.3 gm/dL (3.5-5.0); Albumin/Globulin Ratio 1.5 (1.2-2.2); Alkaline Phosphatase 89 U/L (46-116); Anion Gap 11 (7-16); Aspartate Amino Transferase 21 U/L (0-34); BUN/Creatinine Ratio 10 Ratio (12-20); Bilirubin,Total 0.7 mg/dL (0.3-1.2); Blood Urea Nitrogen 6 mg/dL (9-23); Calcium 9.3 mg/dL (8.3-10.6); Calcium (Corrected) 9.3 mg/dL (8.5-10.1); Carbon Dioxide 24.4 mMol/L (20.0-31.0); Chloride 107 mMol/L (98-107); Creatinine (Component) 0.6 mg/dL (0.6-1.3); Estimated Creatinine Clearance 121.5 mL/min (>60); Globulin 2.8 gm/dL (2.3-3.5); Glucose 91 mg/dL (74-106); Lipase 26 U/L (12-53); Osmolality,Calculated 280 (275-295); Potassium 4.2 mMol/L (3.4-5.1); Sodium 142 mMol/L (136-145); Total Protein 7.1 gm/dL (5.7-8.2); eGFR > 60 See Note
[2024-10-26 13:14] LABS: Bacteria,Urine Rare; Bilirubin,Urine Negative (Negative); Blood,Urine 1+ (Negative); Glucose, Urine Negative (Negative); HCG Qualitative,Urine Negative; Hyaline Casts,Urine < 1 /hpf (0-1); Ketones,Urine Negative (Negative); Leukocyte Esterase,Urine Positive (Negative); Nitrite,Urine Negative (Negative); PH,Urine 6.0 (5.0-7.0); Protein,Urine Negative (Neg - Trace); RBC,Urine 9 /hpf (0-3); Specific Gravity,Urine 1.020 (1.001-1.035); Squamous Epithelial Cell,Urine 28 /hpf (0-5); Urobilinogen,Urine Negative mg/dL (0.0-1.0); WBC,Urine 25 /hpf (0-5)
[2024-10-26 13:35] LABS: Clarity,Urine Hazy (Clear/Hazy); Color,Urine Yellow (Lt Yel-Yel)
== END 2024-10-26 14:27 | disposition home or self-care (01) ==
PROVIDERS: Nurse Practitioner Family; Emergency Provider Emergency Medicine; PCP Physician Assistant Medical
DX: N39.0 Urinary tract infection, site not specified (principal)
CPT/HCPCS: 36415; 74176; 80053; 81001; 81025; 83690; 85025; 87077; 87086; 87186; 99283

== ENCOUNTER 2024-12-01 09:58 | Emergency (ER) | payer MEDICAID, SELFPAY ==
[2024-12-01 10:10] VITALS: BP 117/77; PULSE 80; RESP 17; TEMP 37.3; O2SAT 98; BMI 26.8
--- NOTE | 2024-12-01 10:18 | XR_ITS ---
Examination: CT brain head without contrast. 2-D sagittal coronal reconstructions Date and time of exam: 12/01/2024, 11:14 a.m. INDICATION: Seizure. COMPARISON: 12/23/2023 CTDI: vol (mGy): 51.6 DLP: (mGycm): 1023 Technique: Multiple CT axial sections of the brain have been obtained, 5 mm slice thickness. Contrast has not been administered. 2-D sagittal, coronal reconstructions have been obtained Low dose protocols were performed. One or more of the following dose reduction techniques were used; automated exposure control, adjustment of the mA and/or KV according to patient size, use of iterative reconstruction technique. Findings: No significant ventricular enlargement. Intra-axial or extra-axial hemorrhage density is not seen. No mass effect or midline shift Basal cisterns are not remarkable. Fourth ventricle is midline. Cranial vault intact. Impression: Negative for acute hemorrhage, mass effect or midline shift
--- NOTE | 2024-12-01 10:18 | XR_ITS ---
Shoulder, left, 3 views Technique: Shoulder AP internal rotation, AP external rotation, Y view shoulder, 3 views Exam date and time : 12/01/2024, 10:18 a.m. INDICATION: Trauma COMPARISON: None FINDINGS: No evidence of fracture or dislocation. No chronic degenerative changes. No soft tissue abnormality or foreign body. IMPRESSION: Negative exam
--- NOTE | 2024-12-01 10:18 | XR_ITS ---
EXAMINATION: Cervical spine, 5 views Technique: Cervical spine AP, AP odontoid, lateral, bilateral obliques, 5 views Exam date and time: Not 12/01/2024, 10:18 a.m. INDICATION: Trauma COMPARISON: None FINDINGS: No evidence of fracture or dislocation. No chronic degenerative changes. No soft tissue abnormality or foreign body. IMPRESSION: Negative exam
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
== END 2024-12-01 12:51 | disposition home or self-care (01) ==
PROVIDERS: Emergency Provider Emergency Medicine; PCP Family Medicine
DX: S09.90XA Unspecified injury of head, initial encounter (principal); G40.909 Epilepsy, unspecified, not intractable, without status epilepticus; V89.2XXA Person injured in unspecified motor-vehicle accident, traffic, initial encounter; Y92.410 Unspecified street and highway as the place of occurrence of the external cause
CPT/HCPCS: 70450; 72040; 73030; 99284; A9270